=== PATIENT | female | born 1975 | race Caucasian/White ===

== ENCOUNTER 2019-07-15 00:52 | Emergency (ER) | payer MEDICAID ==
[~2019-07-15] VITALS: Ht 170.2 cm; Wt 86.4 kg
[~2019-07-15 00:52] MED LIST: METH-360 PO; PRED1DRO LEFTEYE
[2019-07-15] MEDS ORDERED: BUPIVAcaine/PF 2.5 mg/ml (0.25%) 30ml vial IJ ONE (01:55)
[2019-07-15] MEDS ORDERED: BUPIVAcaine/PF 2.5mg/ml (0.25%) 10ml vial IJ ONE (02:00)
--- NOTE | 2019-07-15 02:10 | NUR ---
MD MITCHELL MADE AWARE OF VITALS. NO NEW ORDERS.
[2019-07-15 02:49] VITALS: BP 180/120
== END 2019-07-15 02:53 | disposition home or self-care (01) ==
LOC: ER 00:52
DX: K08.89 Other specified disorders of teeth and supporting structures (principal); Z86.73 Personal history of transient ischemic attack (TIA), and cerebral infarction without residual deficits; Z79.899 Other long term (current) drug therapy
CPT/HCPCS: 64400; 99284; J3490

== ENCOUNTER 2019-08-16 22:50 | Emergency (ER) | payer MEDICAID ==
[~2019-08-16] VITALS: Ht 170.2 cm; Wt 86.0 kg
[2019-08-17] MEDS ORDERED: HYDROcodone/acetaminophen 10/325mg tab PO ONE (00:05)
[2019-08-17] MEDS ORDERED: PENI500T2 PO (00:28)
[2019-08-17 00:48] VITALS: BP 128/82
== END 2019-08-17 00:51 | disposition home or self-care (01) ==
LOC: ER 22:51
DX: S02.5XXA Fracture of tooth (traumatic), initial encounter for closed fracture (principal); K02.9 Dental caries, unspecified; Z86.73 Personal history of transient ischemic attack (TIA), and cerebral infarction without residual deficits; Z79.899 Other long term (current) drug therapy; X58.XXXA Exposure to other specified factors, initial encounter; Y93.89 Activity, other specified; Y92.89 Other specified places as the place of occurrence of the external cause; Y99.8 Other external cause status
CPT/HCPCS: 99284

== ENCOUNTER 2020-05-06 16:31 | Emergency (ER) | payer MEDICAID ==
[~2020-05-06] VITALS: Ht 170.2 cm; Wt 81.8 kg
[2020-05-06 17:09] LABS: BASOPHILS # (AUTO) 0.1 X10'3 (0-0.2); EOSINOPHILS # (AUTO) 0.3 X10'3 (0-0.9); EOSINOPHILS % (AUTO) 4.3 % (0-6); HEMATOCRIT 37.8 % (35.0-45.0); HEMOGLOBIN 12.2 g/dl (12.0-16.0); LYMPHOCYTES # (AUTO) 1.2 X10'3 (1.1-4.8); LYMPHOCYTES % (AUTO) 18.3 % (21-51); MEAN CORPUSCULAR HEMOGLOBIN 25.8 PG (27.0-31.0); MEAN CORPUSCULAR HGB CONC 32.3 g/dL (33.0-36.5); MEAN CORPUSCULAR VOLUME 79.8 FL (78-98); MEAN PLATELET VOLUME 8.3 FL (7.4-10.4); MONOCYTES # (AUTO) 0.7 X10'3 (0-0.9); MONOCYTES % (AUTO) 10.3 % (2-12); NEUTROPHILS # (AUTO) 4.4 X10'3 (1.8-7.7); NEUTROPHILS % (AUTO) 66.1 % (42-75); PLATELET COUNT 336 X10'3 (140-440); RED BLOOD COUNT 4.74 X10'6 (4.20-5.60); RED CELL DISTRIBUTION WIDTH 17.8 % (11.5-14.5); WHITE BLOOD COUNT 6.7 X10'3 (4.5-11.0)
[2020-05-06 17:23] LABS: ANION GAP 10 (8-16); BLOOD UREA NITROGEN 34 MG/DL (7-18); CHLORIDE 107 MMOL/L (99-107); CREATININE 1.48 MG/DL (0.40-0.90); GLUCOSE 101 MG/DL (70-104); POTASSIUM 4.3 MMOL/L (3.5-5.1); SODIUM 142 MMOL/L (135-145); TOTAL CARBON DIOXIDE 25.2 MMOL/L (24-32); eGFR 38 ML/MIN
[2020-05-06 17:24] LABS: ALANINE AMINOTRANSFERASE 25 U/L (12-78); ALBUMIN 3.3 G/DL (3.4-5.0); ALBUMIN/GLOBULIN RATIO 0.8 (1.1-1.5); ALKALINE PHOSPHATASE 65 IU/L (46-116); ASPARTATE AMINO TRANSFERASE 15 U/L (10-37); BILIRUBIN,TOTAL 0.2 MG/DL (0.1-1.0); TOTAL PROTEIN 7.4 G/DL (6.4-8.2)
--- NOTE | 2020-05-06 18:02 | NUR ---
Discussed pt's BP and current home med order w/ edmd Jerilyn; new order for Lisinipril 40mg and [id number] mg received.
[2020-05-06] MEDS: labetalol 100mg tablet PO ONE ×2 (18:10→18:13)
[2020-05-06] MEDS ORDERED: labetalol 20mg/4ml (5mg/ml) syringe IV ONE (18:10)
[2020-05-06] MEDS: lisinopril 10 MG tablet PO ONE ×2 (18:10→18:13)
--- NOTE | 2020-05-06 18:13 | NUR ---
CAHNCE Mac picked up pt. Discussed the IV Labatolol order with him, sharing SHELL Jean-Baptiste had given a verbal for pt's HS home meds. Per CHANCE Mac, dc PO cardiac meds and only give IV Labetalol. PO meds returned.
[2020-05-06] MEDS ORDERED: cloNIDine 0.1 mg tablet PO ONE (18:55)
--- NOTE | 2020-05-06 19:04 | NUR ---
Pt. dropped clonidine during admin, new clonidince pulled from [employer]
[2020-05-06 19:51] LABS: URINE HCG NEGATIVE (NEG)
[2020-05-06 19:52] LABS: CLARITY,URINE SLIGHTLY CLOUDY (Clear); COLOR,URINE YELLOW (Yellow); GLUCOSE, URINE NEGATIVE (Neg); KETONES,URINE NEGATIVE (Neg); LEUKOCYTE ESTERASE ,URINE TRACE (Neg); NITRITES, URINE NEGATIVE (Neg); OCCULT BLOOD,URINE LARGE (Neg); PROTEIN,URINE 100 mg/dl (Neg); UROBILINOGEN,URINE 0.2 E.U/dL (0.2-1.0)
[2020-05-06 20:04] LABS: URINE AMPHETAMINE SCREEN NEGATIVE (Neg); URINE BARBITUATE SCREEN NEGATIVE (Neg); URINE BENZODIAZEPINES SCREEN NEGATIVE (Neg); URINE CANNABINOID SCREEN NEGATIVE (Neg); URINE COCAINE SCREEN NEGATIVE (Neg); URINE METHADONE SCREEN NEGATIVE (Neg); URINE OPIATE SCREEN NEGATIVE (Neg); URINE PHENCYCLIDINE SCREEN NEGATIVE (Neg)
[2020-05-06 20:08] LABS: UA COLLECTION TYPE CLN CATCH MIDSTREAM
[2020-05-06 20:09] LABS: BACTERIA,URINE NONE SEEN /HPF (Neg); RBC,URINE 20-50 /HPF (0-2); SQUAMOUS EPITHELIAL CELL,UR FEW /LPF (FEW); WBC,URINE NONE SEEN /HPF (0-4)
[2020-05-06] MEDS ORDERED: hydrALAZINE 20mg/ml inj. IV ONE (20:20)
[2020-05-06 21:05] VITALS: BP 143/103
== END 2020-05-06 21:07 | disposition home or self-care (01) ==
LOC: ER 16:32
DX: I10 Essential (primary) hypertension (principal); R53.1 Weakness; M79.604 Pain in right leg; M79.605 Pain in left leg; Z86.73 Personal history of transient ischemic attack (TIA), and cerebral infarction without residual deficits; Z79.899 Other long term (current) drug therapy
CPT/HCPCS: 36415; 70450; 71045; 80053; 80305; 81001; 81025; 84439; 84443; 84484; 85025; 87088; 93005; 96374; 96375; 99285; J0360; J3490

== ENCOUNTER 2023-06-13 17:33 | Emergency (ER) | payer MEDICAID ==
[~2023-06-13] VITALS: Ht 170.2 cm; Wt 89.8 kg
[2023-06-13 17:34] VITALS: BP_DIAS 144; TEMP 97.7; O2SAT 98
[2023-06-13 18:01] LABS: BASOPHILS # (AUTO) 0.1 X10'3 (0-0.2); BASOPHILS % (AUTO) 0.4 % (0-1); EOSINOPHILS # (AUTO) 0.4 X10'3 (0-0.9); EOSINOPHILS % (AUTO) 3.3 % (0-6); HEMATOCRIT 36.9 % (35.0-45.0); HEMOGLOBIN 11.7 g/dl (12.0-16.0); LYMPHOCYTES # (AUTO) 1.1 X10'3 (1.1-4.8); LYMPHOCYTES % (AUTO) 9.3 % (21-51); MEAN CORPUSCULAR HEMOGLOBIN 24.3 PG (27.0-31.0); MEAN CORPUSCULAR HGB CONC 31.6 g/dL (33.0-36.5); MEAN CORPUSCULAR VOLUME 76.8 FL (78-98); MONOCYTES # (AUTO) 1.5 X10'3 (0-0.9); MONOCYTES % (AUTO) 12.9 % (2-12); NEUTROPHILS # (AUTO) 8.7 X10'3 (1.8-7.7); NEUTROPHILS % (AUTO) 74.1 % (42-75); PLATELET COUNT 382 X10'3 (140-440); RED CELL DISTRIBUTION WIDTH 17.4 % (11.5-14.5); WHITE BLOOD COUNT 11.8 X10'3 (4.5-11.0)
[2023-06-13 18:13] LABS: ALANINE AMINOTRANSFERASE 29 U/L (12-78); ALBUMIN 3.2 G/DL (3.4-5.0); ALBUMIN/GLOBULIN RATIO 0.7 (1.1-1.5); ALKALINE PHOSPHATASE 90 IU/L (46-116); ANION GAP 13 (8-16); ASPARTATE AMINO TRANSFERASE 14 U/L (10-37); BILIRUBIN,TOTAL 0.3 MG/DL (0.1-1.0); BLOOD UREA NITROGEN 28 MG/DL (7-18); BUN/CREATININE RATIO 19.9 (10.0-20.0); CHLORIDE 100 MMOL/L (99-107); CREATININE 1.41 MG/DL (0.40-0.90); GLUCOSE 106 MG/DL (70-104); SODIUM 137 MMOL/L (135-145); TOTAL CARBON DIOXIDE 24.5 MMOL/L (24-32); TOTAL PROTEIN 7.8 G/DL (6.4-8.2); eGFR 40 ML/MIN
[2023-06-13 19:35] VITALS: RESP 16
[2023-06-13] MEDS ORDERED: ALBU6.7H14 INH (19:48)
[2023-06-13] MEDS ORDERED: diphenhydrAMINE 25 MG/10 ML UD oral solution PO ONE (19:50)
[2023-06-13] MEDS ORDERED: dexamethasone 0.5 mg/5ml unit-dose oral solution PO SCH (19:50)
[2023-06-13] MEDS ORDERED: AMLO5TAB4 PO (20:07)
[2023-06-13] MEDS ORDERED: amLODIPine 5mg tablet PO ONE (20:10)
[2023-06-13] MEDS ORDERED: dexamethasone sod phosphate 10mg/ml inj IM STA (20:14)
[2023-06-13 20:19] VITALS: BP_SYST 211; PULSE 90
== END 2023-06-13 22:13 | disposition home or self-care (01) ==
LOC: ER 17:34
DX: B34.9 Viral infection, unspecified (principal); I10 Essential (primary) hypertension; I51.9 Heart disease, unspecified; Z20.822 Contact with and (suspected) exposure to COVID-19
CPT/HCPCS: 36415; 71045; 80053; 83880; 84484; 85025; 87081; 87811; 87880; 93005; 96372; 99285; J1100; Q0163